=== PATIENT | female | born 2000 | race Asian ===

== ENCOUNTER 2018-09-05 13:58 | Emergency (ER) | payer OTHER ==
[~2018-09-05] VITALS: Ht 167.6 cm; Wt 63.5 kg
[2018-09-05 14:06] VITALS: BP_SYST 111
== END 2018-09-05 18:00 | disposition left against medical advice (07) ==
LOC: SED 13:58
DX: S01.81XA Laceration without foreign body of other part of head, initial encounter (principal); Z53.21 Procedure and treatment not carried out due to patient leaving prior to being seen by health care provider; W19.XXXA Unspecified fall, initial encounter; Y93.89 Activity, other specified; Y92.89 Other specified places as the place of occurrence of the external cause; Y99.8 Other external cause status